=== PATIENT | male | born 1975 | race Hispanic/Latino ===

== ENCOUNTER 2022-08-23 08:58 | Emergency (ER) | payer OTHER, SELFPAY ==
[2022-08-23] MEDS ORDERED: Lidocaine 1% PF 5 ML VIAL ONE (09:11)
== END 2022-08-23 10:09 | disposition home or self-care (01) ==
LOC: BURERS 08:58
DX: S61.012A Laceration without foreign body of left thumb without damage to nail, initial encounter (principal); W20.8XXA Other cause of strike by thrown, projected or falling object, initial encounter
CPT/HCPCS: 12002